=== PATIENT | male | born 1965 | race Caucasian/White ===

== ENCOUNTER 2024-12-10 11:20 | Emergency (ER) | payer OTHER, SELFPAY ==
[2024-12-10 11:22] VITALS: PULSE 97; TEMP 36.8; O2SAT 100; BMI 29.5
--- NOTE | 2024-12-10 11:22 | ECG_ITS ---
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
[2024-12-10 11:30] VITALS: BP 144/92
[2024-12-10] MEDS: DICYCLOMINE HCL 20 MG/2 ML VIAL IM (11:35)
[2024-12-10] MEDS: KETOROLAC TROMETHAMINE 60 MG/2 ML VIAL IM (11:35)
[2024-12-10 11:43] LABS: Basophils Absolute Auto 0.1 10^3/uL (0.0-0.1); Basophils Percent Auto 0.8 % (0.2-2.0); Eosinophils Absolute Auto 0.1 10^3/uL (0.0-0.7); Eosinophils Percent Auto 1.2 % (0.9-7.0); Hematocrit 45.6 % (42.0-54.0); Hemoglobin 15.1 g/dL (14.0-18.0); Immature Granulocytes Abs Auto 0.04 10^3/uL (0.00-0.03); Immature Granulocytes Pct Auto 0.5 % (0.0-0.5); Lymphocytes Absolute Auto 1.8 10^3/uL (1.2-3.8); Lymphocytes Percent Auto 24.7 % (20.5-60.0); Mean Corpuscular HGB Conc 33.1 g/dL (29.9-35.2); Mean Corpuscular Hemoglobin 27.2 pg (25.9-34.0); Mean Corpuscular Volume 82.2 fL (80.0-94.0); Mean Platelet Volume 10.6 fL (9.5-13.5); Monocytes Absolute Auto 0.6 10^3/uL (0.3-0.8); Monocytes Percent Auto 8.2 % (1.7-12.0); Neutrophils Absolute Auto 4.8 10^3/uL (1.4-6.5); Neutrophils Percent Auto 64.6 % (43.0-75.0); Platelet Count 135 10^3/uL (150-450); Red Blood Count 5.55 10^6/uL (4.70-6.10); Red Cell Distribution Width 13.2 % (11.0-15.0); White Blood Count 7.4 10^3/uL (4.0-11.0)
--- NOTE | 2024-12-10 11:49 | PC.NURSE ---
pt not displaying any of the typical overdose symptoms, Hr 94, not diaphoretic, alert, no shaking.
--- NOTE | 2024-12-10 11:49 | ED.GENADUL1 ---
HPI HPI - General Adult General Chief complaint: Overdose Stated complaint: overdose Time Seen by Provider: 12/10/24 11:22 Source: patient Mode of arrival: ambulance History of Present Illness HPI narrative: This is Mr. Wynn 59 years old male who is coming to us with a history of Suboxone intake, patient patient mentioned that he usually gets his prescription filled from [facility], the patient took his last dose yesterday today he woke up and he wanted to get more Suboxone but he did not have anymore and he took some Narcan, the patient presented to us only moaning he is not nauseous is not vomiting and on examination there is no obvious distress except for the fact that he is moaning Related Data Previous Rx's ?Medication ?Instructions ?Recorded diclofenac sodium 75 mg 75 mg PO BID PRN pain #14 tabs 12/10/24 tablet,delayed release dicyclomine 20 mg tablet 20 mg PO QID PRN abdominal pain 12/10/24 #10 tabs ondansetron 4 mg disintegrating 4 mg PO TID PRN nausea and 12/10/24 tablet vomiting 24 hours #10 tabs Allergies Allergy/AdvReac Type Severity Reaction Status Date / Time No Known Drug Allergies Allergy Verified 12/10/24 11:25 Opioid HPI Opioid Management Most Recent Opioid Data: Ur Phencyclidine Scrn Negative (NEGATIVE) 12/10/24 12:21 12/10/24 Review of Systems ROS Status of ROS 10 or more systems reviewed and unremarkable except as noted in history and below Exam Narrative Exam Narrative: Nurses notes and vital signs reviewed and patient is not hypoxic. General: Well-appearing and in no apparent distress. Skin: Warm, dry, no pallor noted. No rash. Head: Normocephalic, atraumatic. Neck: Supple, non-tender. Eye: Pupils are equal, round and EOMI. No scleral icterus. Ears, Nose, Mouth, and Throat: TM are clear, no nasal mucosal hypertrophy. Oral mucosa is moist, no posterior oropharynx erythema, uvula is mid-line Cardiovascular: Regular Rate and Rhythm without murmur, gallop or rub. Respiratory: No accessory muscle use or respiratory distress. Lungs are clear to auscultation, no wheezing, rales or rhonchi Chest Wall: no tenderness Back: No midline thoracic or lumbar vertebral tenderness. No CVA tenderness Musculoskeletal: normal ROM, no calf or popliteal tenderness, no lower extremity edema/swelling GI: Abdomen is soft, non-distended. Normal bowel sounds. No masses appreciated. No tenderness to palpation. No rebound, guarding, or rigidity noted. Neurological: A&O x4. No cranial nerve dysfunction observed. No truncal ataxia. Moves all extremities. Sensation intact. Psychiatric: Cooperative and interactive. Normal mood and affect. Constitutional Vital Signs, click to edit/add: Last Vital Signs Temp 98.2 F 12/10/24 11:22 Pulse 92 H 12/10/24 12:40 Resp 18 12/10/24 12:40 BP 158/88 H 12/10/24 12:40 Pulse Ox 97 12/10/24 12:40 O2 Del Method Room Air 12/10/24 11:22 Course Course Hospital Course: The patient upon arrival it was noted that he is not hypertensive is not tachycardic , blood pressure is not elevated it also it was noted on the CIWA score the patient other than complaining of generalized body ache does not have any positive on it Vital Signs Vital signs: Vital Signs Temperature 98.2 F 12/10/24 11:22 Pulse Rate 97 H 12/10/24 11:22 Respiratory Rate 22 H 12/10/24 11:22 Pulse Oximetry 100 12/10/24 11:22 Oxygen Delivery Method Room Air 12/10/24 11:22 Temperature 98.2 F 12/10/24 11:22 Pulse Rate 92 H 12/10/24 12:40 Respiratory Rate 18 12/10/24 12:40 Blood Pressure 158/88 H 12/10/24 12:40 Pulse Oximetry 97 12/10/24 12:40 Oxygen Delivery Method Room Air 12/10/24 11:22 Medical Decision Making [facility] Narrative Medical decision making narrative: I reviewed the patient opiate intake multiple time and I could not find any information about him and even we called [facility] for further information and apparently he never been there although he mentioned that he usually goes to [facility] The patient change his history multiple times while he was here he initially mentioned that he taking Suboxone that he mentioned he taking methadone, I explained to him that right now with his CIWA score is low and the fact that he I do not have any information about him or any confirmation of him taking Suboxone or Buprenex or any even methadone the patient was discharged with supportive care of [place] Patient to come back in case of any new symptoms or concerns It was noted that the patient talk screen came positive for opiates but negative for methadone and Buprenex Lab Data Labs: Lab Results 12/10/24 12/10/24 Range/Units 11:38 12:21 WBC 7.4 (4.0-11.0) 10^3/uL RBC 5.55 (4.70-6.10) 10^6/uL Hgb 15.1 (14.0-18.0) g/dL Hct 45.6 (42.0-54.0) % MCV 82.2 (80.0-94.0) fL MCH 27.2 (25.9-34.0) pg MCHC 33.1 (29.9-35.2) g/dL RDW 13.2 (11.0-15.0) % Plt Count 135 L (150-450) 10^3/uL MPV 10.6 (9.5-13.5) fL Neut % (Auto) 64.6 (43.0-75.0) % Lymph % (Auto) 24.7 (20.5-60.0) % [place] % (Auto) 8.2 (1.7-12.0) % Eos % (Auto) 1.2 (0.9-7.0) % Baso % (Auto) 0.8 (0.2-2.0) % Neut # (Auto) 4.8 (1.4-6.5) 10^3/uL Lymph # (Auto) 1.8 (1.2-3.8) 10^3/uL [place] # (Auto) 0.6 (0.3-0.8) 10^3/uL Eos # (Auto) 0.1 (0.0-0.7) 10^3/uL Baso # (Auto) 0.1 (0.0-0.1) 10^3/uL Abs Immat Gran (auto) 0.04 H (0.00-0.03) 10^3/uL Imm/Tot Granulo (auto) 0.5 (0.0-0.5) % Sodium 136 (136-145) mmol/L Potassium 3.7 (3.5-5.1) mmol/L Chloride 102 (98-107) mmol/L Carbon Dioxide 23.3 (21.0-32.0) mmol/L Anion Gap 14.4 BUN 13.0 (7.0-18.0) mg/dL Creatinine 1.06 (0.70-1.30) mg/dL Est GFR ( Amer) >60 (>=60 mL/min/1.73m^2) Est GFR (Non-Af Amer) >60 (>=60 mL/min/1.73m^2) BUN/Creatinine Ratio 12.3 Glucose 119 H (74-106) mg/dL Calcium 9.4 (8.5-10.1) mg/dL Total Bilirubin 0.6 (0.2-1.0) mg/dL AST 30 (15-37) U/L ALT 65 H (16-63) U/L Alkaline Phosphatase 106 (46-116) U/L Total Protein 7.6 (6.4-8.2) g/dL Albumin 3.6 (3.4-5.0) g/dL Globulin 4.0 g/dL Albumin/Globulin Ratio 0.9 Urine Opiates Screen Positive A (NEGATIVE) Ur Buprenorphine Scrn Negative (NEGATIVE) Ur Oxycodone Screen Negative (NEGATIVE) Urine Methadone Screen Negative (NEGATIVE) Ur Barbiturates Screen Negative (NEGATIVE) U Tricyclic Antidepress Negative (NEGATIVE) Ur Phencyclidine Scrn Negative (NEGATIVE) Ur Amphetamines Screen Negative (NEGATIVE) U Methamphetamines Scrn Negative (NEGATIVE) U Benzodiazepines Scrn Negative (NEGATIVE) Urine Cocaine Screen Negative (NEGATIVE) U Cannabinoids Screen Negative (NEGATIVE) Ethanol Quant <3 mg/dL Discharge Plan Discharge Chief Complaint: Overdose Clinical Impression: Current drug use Patient Disposition: Home, Self-Care Time of Disposition Decision: 12:22 Condition: Good Prescriptions / Home Meds: New diclofenac sodium 75 mg tablet,delayed release (DR/EC) 75 mg PO BID PRN (Reason: pain) Qty: 14 0RF dicyclomine 20 mg tablet 20 mg PO QID PRN (Reason: abdominal pain) Qty: 10 0RF ondansetron 4 mg tablet,disintegrating 4 mg PO TID PRN (Reason: nausea and vomiting) 1 Days Qty: 10 0RF Print Language: [place]ian Instructions: Polysubstance Use Disorder (ED) Referrals: Physician,Non-Staff, MD [Primary Care Provider] - 1 week Discharge Date/Time: 12/10/24 12:50
[2024-12-10 11:58] LABS: Ethanol <3 mg/dL
[2024-12-10 12:02] LABS: Alanine Aminotransferase 65 U/L (16-63); Albumin Globulin Ratio 0.9; Albumin Level 3.6 g/dL (3.4-5.0); Alkaline Phosphatase 106 U/L (46-116); Anion Gap 14.4; Aspartate Amino Transferase 30 U/L (15-37); BUN Creatinine Ratio 12.3; Bilirubin Total 0.6 mg/dL (0.2-1.0); Calcium 9.4 mg/dL (8.5-10.1); Carbon Dioxide 23.3 mmol/L (21.0-32.0); Chloride 102 mmol/L (98-107); Estimated GFR (African America >60 (>=60 mL/min/1.73m^2); Estimated GFR (Non-African Ame >60 (>=60 mL/min/1.73m^2); Glucose 119 mg/dL (74-106); Potassium 3.7 mmol/L (3.5-5.1); Sodium 136 mmol/L (136-145); Total Protein 7.6 g/dL (6.4-8.2)
[2024-12-10 12:40] VITALS: BP 158/88; PULSE 92; O2SAT 97
[2024-12-10 12:40] LABS: Amphetamine Screen Urine NEGATIVE (NEGATIVE); Barbiturates Screen Urine NEGATIVE (NEGATIVE); Benzodiazepines Screen Urine NEGATIVE (NEGATIVE); Buprenorphine Screen Urine NEGATIVE (NEGATIVE); Cannabinoid Screen Urine NEGATIVE (NEGATIVE); Cocaine Screen Urine NEGATIVE (NEGATIVE); Methadone Screen Urine NEGATIVE (NEGATIVE); Methamphetamines Screen Urine NEGATIVE (NEGATIVE); Opiate Screen Urine POSITIVE (NEGATIVE); Oxycodone Screen Urine NEGATIVE (NEGATIVE); Phencyclidine Screen Urine NEGATIVE (NEGATIVE); Tricyclic Antidepressant Urine NEGATIVE (NEGATIVE)
== END 2024-12-10 12:50 | disposition home or self-care (01) ==
PROVIDERS: Emergency Provider Emergency Medicine
DX: F11.90 Opioid use, unspecified, uncomplicated (principal)
CPT/HCPCS: 36415; 80053; 80307; 80320; 85025; 93005; 96372; 99284; J0500; J1885